=== PATIENT | male | born 1960 | race African-American/Black ===

== ENCOUNTER → 2017-06-05 | Outpatient (CLI) | payer OTHER ==
--- NOTE | 2017-06-05 11:52 | RAD ---
Indication: Left knee pain. Time of exam 11:35 AM AP and lateral views demonstrate postop changes to the left knee. There is a lateral plate and screws transfixing the proximal tibia. The hardware appears intact. There is tricompartmental degenerative change with joint space narrowing and marginal spurring. There is spurring of the tibial spines. No fracture, dislocation or effusion is detected. Impression: Chronic and postsurgical changes. No acute bony abnormality is detected.
--- NOTE | 2017-06-05 11:54 | RAD ---
Indication: Low back pain. Time of exam 11:31 AM AP and lateral views demonstrate postop changes of posterior instrumented fusion with vertical stabilization rods and pedicle screws transfixing the L4-5 level. Curvature and alignment is normal. Vertebral body heights are maintained. No acute bony abnormality is seen. The hardware is without evidence of fracture or loosening. Impression: Postop changes. No acute feature is detected.
== END | disposition home or self-care (01) ==
LOC: RAD 11:13
PROVIDERS: ATTEND Surgery
DX: M17.12 Unilateral primary osteoarthritis, left knee (principal); Z98.890 Other specified postprocedural states
CPT/HCPCS: 72100; 73560